=== PATIENT | male | born 1990 | race African-American/Black ===

== ENCOUNTER 2016-08-11 15:41 | Emergency (ER) | payer SELFPAY ==
[2016-08-11] MEDS ORDERED: cefTRIAXone SOD 250 MG VIAL (J0696) As Ordered ONE (17:44)
[2016-08-11] MEDS ORDERED: AZITHROMYCIN 250 MG TAB As Ordered ONE (17:44)
--- NOTE | 2016-08-11 18:00 | EDDOCDS ---
Physician Documentation [facility] Name: Dima Jackson Age: 26 yrs Sex: Male : 1990 Arrival Date: 08/11/2016 Time: 15:41 Bed TR7 Private MD: NO PRIMARY PHYSICIAN, . Disposition: 08/11/16 17:48 Discharged to Home/Self Care. Impression: Nonspecific urethritis - possible STD. - Condition is Stable. - Discharge Instructions: Sexually Transmitted Disease, Urethritis, Adult. - Medication Reconciliation, Local Pharmacy Hours form. - Follow up: [facility]; When: Call to arrange an appointment; Reason: Recheck today's complaints, To establish care. Follow up: Emergency Department; When: As needed; Reason: Fever > 102F, Worsening of conditions. - Problem is new. - Symptoms have improved. - Notes: call for results tomorrow. always use barrier protection with sexualy activity. if you have positive cultures contact ALL recent sexual partners so they can seek treatment. return to ER if you develop fevers, severe pain or swelling or if you develop a genital rash Historical: - Allergies: no known allergies; - Home Meds: 1. none - PMHx: none; - PSHx: none; - Social history: Smoking status: Patient uses tobacco products, light tobacco smoker. No barriers to communication noted, The patient speaks fluent Yoruba. - Family history: Not pertinent. - : The pt / caregiver states he / she is not on anticoagulants. Home medication list is obtained from the patient. - Exposure Risk Screening:: None identified. Vital Signs: 08/11 15:44 BP 142 / 84; Pulse 104; Resp 18 S; Temp 98.4(O); Pulse Ox 100% on R/A; Weight 77.11 kg gr2 / 170 lbs (R); Height 5 ft. 11 in. (180.34 cm) (R); Pain 2/10; 15:44 Body Mass Index 23.71 (77.11 kg, 180.34 cm) gr2 MDM: 17:31 Medical screening is not applicable. ar2 17:37 cefTRIAXone 250 mg IM once ordered. ar2 17:37 azithromycin 1 grams PO once ordered. ar2 17:38 GC & Chlamydia Amplification Ordered. EDMS 17:39 Urine Culture Ordered. EDMS 17:39 Urine Dip ordered. ar2 Administered Medications: 17:57 Drug: cefTRIAXone 250 mg [ceftriaxone 250 mg solution for injection (250 mg)] Route: mk4 IM; Site: left gluteus; 17:57 Drug: azithromycin 1 grams [azithromycin 250 mg tablet (4 tabs)] Route: PO; mk4 Signatures: Dispatcher [employer] Piedad Wolf RN RN dls Robertshaw, Aaron, PA-C PA-C ar2 Emily Shah RN RN 4 MTDD
--- NOTE | 2016-08-11 18:00 | EDDOCDS ---
Nurse's Notes [facility] Name: Dima Jackson Age: 26 yrs Sex: Male : 1990 Arrival Date: 08/11/2016 Time: 15:41 Bed TR7 Private MD: NO PRIMARY PHYSICIAN, . Diagnosis: Nonspecific urethritis-possible STD Presentation: 08/11 15:45 Presenting complaint: Patient states: Pt presents with slight swelling and burning to dls penis x one week pt thinks he has been exposed to STD. Pt states he has had 6 partners in last 100 days. Adult Sepsis Screening: The patient does not have new or worsening altered mentation. Patient's respiratory rate is less than 22. Systolic blood pressure is greater than 100. Patient has a qSOFA score of 0- Negative Sepsis Screen. Suicide/Homicide risk assessment- the patient denies having any suicidal and/or homicidal ideations and does not present with any other emotional, behavioral or mental health complaints. Status: Patient is not a donor services coordinator or dependent. Transition of care: patient was not received from another setting of care. 15:45 Acuity: NELIA Level 4 dls 15:45 Method Of Arrival: Walkin/Carried/Asstd dls Triage Assessment: 15:48 General: Appears in no apparent distress, well developed, well nourished, well groomed, dls Behavior is cooperative. Pain: Denies pain. HIV screening NA for this visit Offered previously. Historical: - Allergies: no known allergies; - Home Meds: 1. none - PMHx: none; - PSHx: none; - Social history: Smoking status: Patient uses tobacco products, light tobacco smoker. No barriers to communication noted, The patient speaks fluent Georgian. - Family history: Not pertinent. - : The pt / caregiver states he / she is not on anticoagulants. Home medication list is obtained from the patient. - Exposure Risk Screening:: None identified. Screenin:57 Screening information is obtained from the patient. Fall risk: No risks identified. mk4 Assistance ADL's: requires no assistance with activities of daily living. Abuse/DV Screen: The patient / caregiver reports he/she is: not in a situation that causes fear, pain or injury. Nutritional screening: No deficits noted. Advance Directives: Currently, there is no health care proxy. There is no active DNR order. There is no living will. There is no Power of Hogshead Opener. Advance directive information has not previously been placed in an [facility] medical record. home support is adequate. Assessment: 17:57 General: Appears in no apparent distress. Pain: Denies pain. : Reports discharge mk4 urgency urinary frequency Patient is sexually active. Vital Signs: 15:44 BP 142 / 84; Pulse 104; Resp 18 S; Temp 98.4(O); Pulse Ox 100% on R/A; Weight 77.11 kg gr2 (R); Height 5 ft. 11 in. (180.34 cm) (R); Pain 2/10; 15:44 Body Mass Index 23.71 (77.11 kg, 180.34 cm) gr2 Vitals: 15:44 Log In Time: August 11, 2016 at 15:44. gr2 ED Course: 15:43 Patient visited by Saul Verdugo. gr2 15:43 NO PRIMARY PHYSICIAN, . is Private Physician. gr2 15:43 Patient moved to Waiting gr2 15:45 Patient visited by Saul Verdugo. gr2 15:45 Patient moved to Pre RCE gr2 15:47 Triage Initiated dls 17:31 Solitario Uriostegui PA-C is PHCP. ar2 17:31 Mary Grace Jacome MD is Attending Physician. ar2 17:31 Patient visited by Solitario Uriostegui PA-C. ar2 17:31 Patient moved to Triage 3 ct3 17:47 [facility] is Referral Physician. ar2 17:49 Urine Culture Sent. ct3 17:49 GC & Chlamydia Amplification Sent. ct3 17:57 Patient moved to TR7 kcs 17:57 The patient / caregiver is instructed regarding the plan of care and ED course. mk4 17:57 No IV's were initiated during this patient's visit. No procedures done that require mk4 assistance. Administered Medications: 17:57 Drug: cefTRIAXone 250 mg [ceftriaxone 250 mg solution for injection (250 mg)] Route: mk4 IM; Site: left gluteus; 17:57 Drug: azithromycin 1 grams [azithromycin 250 mg tablet (4 tabs)] Route: PO; mk4 Order Results: There are currently no results for this order. Outcome: 17:48 Discharge ordered by Provider. ar2 17:57 Discharge Assessment: Patient awake, alert and oriented x 3. No cognitive and/or mk4 functional deficits noted. Patient verbalized understanding of disposition instructions. Patient awake and alert. Discharge Assessment: patient administered narcotics - no. The following High Risk Discharge criteria are identified: None. Condition: good Condition: stable. No special radiology studies were completed. Property sent home with patient. 17:59 Patient left the ED. mk4 Signatures: Haritha Huffman, RN RN Piedad Rubin RN RN Solitario Lopez PA-C PADaphne ar2 Fely Russo, CHANDRA EXTENSION ASSOCIATE ct3 Saul Verdugo gr2 Emily Shah RN RN mk4 MTDD
--- NOTE | 2016-08-13 19:01 | EDDOCDS ---
Nurse's Notes [facility] Name: Dima Jackson Age: 26 yrs Sex: Male : 1990 Arrival Date: 08/11/2016 Time: 15:41 Bed TR7 Private MD: NO PRIMARY PHYSICIAN, . Diagnosis: Nonspecific urethritis-possible STD Presentation: 08/11 15:45 Presenting complaint: Patient states: Pt presents with slight swelling and burning to dls penis x one week pt thinks he has been exposed to STD. Pt states he has had 6 partners in last 100 days. Adult Sepsis Screening: The patient does not have new or worsening altered mentation. Patient's respiratory rate is less than 22. Systolic blood pressure is greater than 100. Patient has a qSOFA score of 0- Negative Sepsis Screen. Suicide/Homicide risk assessment- the patient denies having any suicidal and/or homicidal ideations and does not present with any other emotional, behavioral or mental health complaints. Status: Patient is not a oil well services superintendent or dependent. Transition of care: patient was not received from another setting of care. 15:45 Acuity: NELIA Level 4 dls 15:45 Method Of Arrival: Walkin/Carried/Asstd dls Triage Assessment: 15:48 General: Appears in no apparent distress, well developed, well nourished, well groomed, dls Behavior is cooperative. Pain: Denies pain. HIV screening NA for this visit Offered previously. Historical: - Allergies: no known allergies; - Home Meds: 1. none - PMHx: none; - PSHx: none; - Social history: Smoking status: Patient uses tobacco products, light tobacco smoker. No barriers to communication noted, The patient speaks fluent Maori. - Family history: Not pertinent. - : The pt / caregiver states he / she is not on anticoagulants. Home medication list is obtained from the patient. - Exposure Risk Screening:: None identified. Screenin:57 Screening information is obtained from the patient. Fall risk: No risks identified. mk4 Assistance ADL's: requires no assistance with activities of daily living. Abuse/DV Screen: The patient / caregiver reports he/she is: not in a situation that causes fear, pain or injury. Nutritional screening: No deficits noted. Advance Directives: Currently, there is no health care proxy. There is no active DNR order. There is no living will. There is no Power of Sports Announcer. Advance directive information has not previously been placed in an [facility] medical record. home support is adequate. Assessment: 17:57 General: Appears in no apparent distress. Pain: Denies pain. : Reports discharge mk4 urgency urinary frequency Patient is sexually active. Vital Signs: 15:44 BP 142 / 84; Pulse 104; Resp 18 S; Temp 98.4(O); Pulse Ox 100% on R/A; Weight 77.11 kg gr2 (R); Height 5 ft. 11 in. (180.34 cm) (R); Pain 2/10; 15:44 Body Mass Index 23.71 (77.11 kg, 180.34 cm) gr2 Vitals: 15:44 Log In Time: August 11, 2016 at 15:44. gr2 ED Course: 15:43 Patient visited by Saul Verdugo. gr2 15:43 NO PRIMARY PHYSICIAN, . is Private Physician. gr2 15:43 Patient moved to Waiting gr2 15:45 Patient visited by Saul Verdugo. gr2 15:45 Patient moved to Pre RCE gr2 15:47 Triage Initiated dls 17:31 Solitario Uriostegui PA-C is PHCP. ar2 17:31 Mary Grace Jacome MD is Attending Physician. ar2 17:31 Patient visited by Solitario Uriostegui PA-C. ar2 17:31 Patient moved to Triage 3 ct3 17:47 [facility] is Referral Physician. ar2 17:49 Urine Culture Sent. ct3 17:49 GC & Chlamydia Amplification Sent. ct3 17:57 Patient moved to TR7 kcs 17:57 The patient / caregiver is instructed regarding the plan of care and ED course. mk4 17:57 No IV's were initiated during this patient's visit. No procedures done that require mk4 assistance. 18:01 Patient name changed from Dima\S\\S\Renetta\S\ to Dima\S\ \S\Renetta. EDMS 18:03 [facility] Payment Agreement was scanned into [employer] and attached to record. gjb 08/12 13:47 T-Sheet-- Draft Copy was scanned into [employer] and attached to record. gb Administered Medications: 08/11 17:57 Drug: cefTRIAXone 250 mg [ceftriaxone 250 mg solution for injection (250 mg)] Route: mk4 IM; Site: left gluteus; 17:57 Drug: azithromycin 1 grams [azithromycin 250 mg tablet (4 tabs)] Route: PO; mk4 Order Results: Lab Order: GC & Chlamydia Amplification; SPEC'M 08/11/16 17:45 Test: CHLAMYDIA DNA AMPLIFICATION; Value: NEGATIVE; Range: NEGATIVE; Abnormal: Above high normal; Status: F Test: GC DNA AMPLIFICATION; Value: POSITIVE; Range: NEGATIVE; Abnormal: Above high normal; Status: F Test Note: ; --- 08/12/16 0844 --- CHLAMYDIA DNA A previously reported as: POSITIVE H Lab Order: Urine Culture; SPEC'M 08/11/16 17:45 Test: URINE CULTURE; Value: <EXTERNAL COMMENT eCWMed> FULL REPORT IN LAB NOTES (eCW and Medent).; Status: F Test: URINE CULTURE; Value: URINE CULTURE RESULT NO GROWTH; Status: F Outcome: 17:48 Discharge ordered by Provider. ar2 17:57 Discharge Assessment: Patient awake, alert and oriented x 3. No cognitive and/or mk4 functional deficits noted. Patient verbalized understanding of disposition instructions. Patient awake and alert. Discharge Assessment: patient administered narcotics - no. The following High Risk Discharge criteria are identified: None. Condition: good Condition: stable. No special radiology studies were completed. Property sent home with patient. 17:59 Patient left the ED. mk4 Signatures: Dispatcher [employer] EDHaritha Coleman RN RN kcs Scott, Debra, RN RN dls Marianne Olivas, Reg Reg gb Solitario Uriostegui PA-C PA-C ar2 Fely Russo, SENIOR IT ASSISTANT SENIOR IT ASSISTANT ct3 Saul Verdugo gr2 Emily Shah RN RN mk4 Sophia Webber Chart Complete MTDD
--- NOTE | 2016-08-13 19:01 | EDDOCDS ---
Physician Documentation [facility] Name: Dima Jackson Age: 26 yrs Sex: Male : 1990 Arrival Date: 08/11/2016 Time: 15:41 Bed TR7 Private MD: NO PRIMARY PHYSICIAN, . Disposition: 08/11/16 17:48 Discharged to Home/Self Care. Impression: Nonspecific urethritis - possible STD. - Condition is Stable. - Discharge Instructions: Sexually Transmitted Disease, Urethritis, Adult. - Medication Reconciliation, Local Pharmacy Hours form. - Follow up: [facility]; When: Call to arrange an appointment; Reason: Recheck today's complaints, To establish care. Follow up: Emergency Department; When: As needed; Reason: Fever > 102F, Worsening of conditions. - Problem is new. - Symptoms have improved. - Notes: call for results tomorrow. always use barrier protection with sexualy activity. if you have positive cultures contact ALL recent sexual partners so they can seek treatment. return to ER if you develop fevers, severe pain or swelling or if you develop a genital rash Historical: - Allergies: no known allergies; - Home Meds: 1. none - PMHx: none; - PSHx: none; - Social history: Smoking status: Patient uses tobacco products, light tobacco smoker. No barriers to communication noted, The patient speaks fluent Lao. - Family history: Not pertinent. - : The pt / caregiver states he / she is not on anticoagulants. Home medication list is obtained from the patient. - Exposure Risk Screening:: None identified. Vital Signs: 08/11 15:44 BP 142 / 84; Pulse 104; Resp 18 S; Temp 98.4(O); Pulse Ox 100% on R/A; Weight 77.11 kg gr2 / 170 lbs (R); Height 5 ft. 11 in. (180.34 cm) (R); Pain 2/10; 15:44 Body Mass Index 23.71 (77.11 kg, 180.34 cm) gr2 MDM: 17:31 Medical screening is not applicable. ar2 17:37 cefTRIAXone 250 mg IM once ordered. ar2 17:37 azithromycin 1 grams PO once ordered. ar2 17:38 GC & Chlamydia Amplification Ordered. EDMS 17:39 Urine Culture Ordered. EDMS 17:39 Urine Dip ordered. ar2 18:03 [facility] Payment Agreement was scanned into [employer] and attached to record. gjb 08/12 13:47 T-Sheet-- Draft Copy was scanned into [employer] and attached to record. gb Administered Medications: 08/11 17:57 Drug: cefTRIAXone 250 mg [ceftriaxone 250 mg solution for injection (250 mg)] Route: mk4 IM; Site: left gluteus; 17:57 Drug: azithromycin 1 grams [azithromycin 250 mg tablet (4 tabs)] Route: PO; mk4 Signatures: Dispatcher [employer] EDPiedad Treadwell, RN RN dls Marianne Olivas, Reg Reg Solitario Sanchez, PA-C PA-C ar2 Emily Shah RN RN [email or web address] Sophia Webber The chart was reviewed and I authenticate all verbal orders and agree with the evaluation and treatment provided.Attachments: 18:03 [facility] Payment Agreement gjb 08/12 13:47 T-Sheet-- Draft Copy gb Chart Complete MTDD
--- NOTE | 2016-08-13 19:01 | EDDOCDS ---
Physician Documentation [facility] Name: Dima Jackson Age: 26 yrs Sex: Male : 1990 Arrival Date: 08/11/2016 Time: 15:41 Bed TR7 Private MD: NO PRIMARY PHYSICIAN, . Disposition: 08/11/16 17:48 Discharged to Home/Self Care. Impression: Nonspecific urethritis - possible STD. - Condition is Stable. - Discharge Instructions: Sexually Transmitted Disease, Urethritis, Adult. - Medication Reconciliation, Local Pharmacy Hours form. - Follow up: [facility]; When: Call to arrange an appointment; Reason: Recheck today's complaints, To establish care. Follow up: Emergency Department; When: As needed; Reason: Fever > 102F, Worsening of conditions. - Problem is new. - Symptoms have improved. - Notes: call for results tomorrow. always use barrier protection with sexualy activity. if you have positive cultures contact ALL recent sexual partners so they can seek treatment. return to ER if you develop fevers, severe pain or swelling or if you develop a genital rash Historical: - Allergies: no known allergies; - Home Meds: 1. none - PMHx: none; - PSHx: none; - Social history: Smoking status: Patient uses tobacco products, light tobacco smoker. No barriers to communication noted, The patient speaks fluent Kyrgyz. - Family history: Not pertinent. - : The pt / caregiver states he / she is not on anticoagulants. Home medication list is obtained from the patient. - Exposure Risk Screening:: None identified. Vital Signs: 08/11 15:44 BP 142 / 84; Pulse 104; Resp 18 S; Temp 98.4(O); Pulse Ox 100% on R/A; Weight 77.11 kg gr2 / 170 lbs (R); Height 5 ft. 11 in. (180.34 cm) (R); Pain 2/10; 15:44 Body Mass Index 23.71 (77.11 kg, 180.34 cm) gr2 MDM: 17:31 Medical screening is not applicable. ar2 17:37 cefTRIAXone 250 mg IM once ordered. ar2 17:37 azithromycin 1 grams PO once ordered. ar2 17:38 GC & Chlamydia Amplification Ordered. EDMS 17:39 Urine Culture Ordered. EDMS 17:39 Urine Dip ordered. ar2 18:03 [facility] Payment Agreement was scanned into [employer] and attached to record. gjb 08/12 13:47 T-Sheet-- Draft Copy was scanned into [employer] and attached to record. gb Administered Medications: 08/11 17:57 Drug: cefTRIAXone 250 mg [ceftriaxone 250 mg solution for injection (250 mg)] Route: mk4 IM; Site: left gluteus; 17:57 Drug: azithromycin 1 grams [azithromycin 250 mg tablet (4 tabs)] Route: PO; mk4 Signatures: Dispatcher [employer] EDPiedad Treadwell, RN RN dls Marianne Olivas, Reg Reg Solitario Sanchez, PA-C PA-C ar2 Emily Shah RN RN [email or web address] Sophia Webber The chart was reviewed and I authenticate all verbal orders and agree with the evaluation and treatment provided.Attachments: 18:03 [facility] Payment Agreement gjb 08/12 13:47 T-Sheet-- Draft Copy gb Chart Complete MTDD
== END 2016-08-11 17:59 | disposition home or self-care (01) ==
LOC: M ED 15:41
DX: N34.1 Nonspecific urethritis (principal); F17.210 Nicotine dependence, cigarettes, uncomplicated
CPT/HCPCS: 87086; 87491; 87591; 96372; 99283; J0696

== ENCOUNTER 2016-12-09 07:35 | Emergency (ER) | payer SELFPAY ==
[~2016-12-09] VITALS: Ht 177.8 cm; Wt 76.4 kg
[2016-12-09] MEDS ORDERED: AZITHROMYCIN 250 MG TAB PO ONE (08:30)
[2016-12-09] MEDS ORDERED: cefTRIAXone SOD 250 MG VIAL (J0696) IM ONE (08:30)
[2016-12-09] MEDS ORDERED: LIDOCAINE 1% MDV 20ML VIAL As Ordered ONE (08:33)
[2016-12-09 09:48] VITALS: BP 136/94
== END 2016-12-09 09:49 | disposition home or self-care (01) ==
LOC: M ED 07:58
DX: N34.1 Nonspecific urethritis (principal); R30.0 Dysuria
CPT/HCPCS: 81001; 87491; 87591; 96372; 99283; J0696

== ENCOUNTER 2017-08-30 21:20 | Emergency (ER) | payer MEDICAID, SELFPAY ==
[2017-08-30] MEDS: cefTRIAXone SOD 250 MG VIAL (J0696) IM (22:07)
[2017-08-30] MEDS: AZITHROMYCIN 250 MG TAB PO (22:07)
[2017-08-30 23:31] LABS: CHLAMYDIA DNA AMPLIFICATION NEGATIVE (NEGATIVE); GC DNA AMPLIFICATION NEGATIVE (NEGATIVE)
[2017-08-31 11:38] LABS: HEPATITIS B SURFACE ANTIBODY NEGATIVE (POSITIVE)
[2017-08-31 11:46] LABS: HEPATITIS B SURFACE ANTIGEN NEGATIVE (NEGATIVE)
[2017-08-31 12:12] LABS: HEPATITIS C VIRUS ABY INDEX 0.1 INDEX (<0.8)
[2017-08-31 12:13] LABS: HIV 1&2 SCREEN CENTAUR NEGATIVE (NEGATIVE)
== END 2017-08-30 22:36 | disposition home or self-care (01) ==
LOC: M ED 21:20
DX: N50.89 Other specified disorders of the male genital organs (principal); Z20.2 Contact with and (suspected) exposure to infections with a predominantly sexual mode of transmission; F17.210 Nicotine dependence, cigarettes, uncomplicated
CPT/HCPCS: J0696

== ENCOUNTER 2019-03-08 18:17 | Emergency (ER) | payer MEDICAID, SELFPAY ==
[~2019-03-08] VITALS: Ht 177.8 cm; Wt 77.3 kg
[2019-03-08 20:26] LABS: CHLAMYDIA DNA AMPLIFICATION NEGATIVE (NEGATIVE); GC DNA AMPLIFICATION NEGATIVE (NEGATIVE)
[2019-03-08] MEDS ORDERED: cefTRIAXone SOD 250 MG VIAL (J0696) IM STA (20:46)
[2019-03-08 20:54] VITALS: BP 139/81
[2019-03-08] MEDS ORDERED: DOXY100C37 PO (20:54)
[2019-03-08] MEDS ORDERED: ZOFR8TAB24 PO (20:54)
[2019-03-08] MEDS ORDERED: ONDANSETRON 4 MG ORAL DISINTEGRATING TAB (Q0162 PER 1MG) PO ONE (21:00)
[2019-03-08] MEDS ORDERED: metroNIDAZOLE (FLAGYL) 500 MG TAB PO ONE (21:00)
[2019-03-08] MEDS ORDERED: LIDOCAINE 1% SDV 5 ML VIAL DILUENT ONE (21:00)
[2019-03-09 07:03] LABS: HEPATITIS B SURFACE ANTIBODY NEGATIVE (POSITIVE); HEPATITIS B SURFACE ANTIGEN NEGATIVE (NEGATIVE); HEPATITIS C VIRUS ABY INDEX 0.1 INDEX (<0.8); HIV 1&2 SCREEN CENTAUR NEGATIVE (NEGATIVE)
== END 2019-03-08 21:30 | disposition home or self-care (01) ==
LOC: M ED 18:17
DX: A59.9 Trichomoniasis, unspecified (principal); R30.0 Dysuria; F17.210 Nicotine dependence, cigarettes, uncomplicated; Z87.19 Personal history of other diseases of the digestive system; Z86.19 Personal history of other infectious and parasitic diseases; Z20.2 Contact with and (suspected) exposure to infections with a predominantly sexual mode of transmission
CPT/HCPCS: 81001; 86706; 86780; 86803; 87086; 87340; 87389; 87661; 96372; 99283; J0696; Q0162